=== PATIENT | male | born 1940 | race Caucasian/White ===

== ENCOUNTER → 2016-07-16 | Outpatient (CLI) | payer MEDICARE, OTHER | END | disposition home or self-care (01) | LOC: PCVCCLINIC 11:40 | PROVIDERS: ATTEND Internal Medicine Cardiovascular Disease | DX: I25.10 Atherosclerotic heart disease of native coronary artery without angina pectoris (principal); I10 Essential (primary) hypertension; E78.00 Pure hypercholesterolemia, unspecified; I05.9 Rheumatic mitral valve disease, unspecified; I48.91 Unspecified atrial fibrillation | CPT/HCPCS: 93005; G0463 ==

== ENCOUNTER → 2017-01-12 | Outpatient (CLI) | payer MEDICARE, OTHER ==
--- NOTE | 2017-01-12 14:42 | PCVCIMAG ---
EXAM: BILATERAL CAROTID DUPLEX INDICATION: Carotid Occlusive Disease. FINDINGS: Doppler Measurements (centimeters per second): RIGHT: Peak CCA-75, Peak ECA-113, Diastolic ICA-26, Peak ICA-77, ICA/CCA Ratio-1.0. LEFT: Peak CCA-92, Peak ECA-93, Diastolic ICA-19, Peak ICA-91, ICA/CCA Ratio-1.0. RIGHT CAROTID: The carotid bulb has minimal plaque. The proximal internal carotid artery shows no significant stenosis. The common carotid artery shows no significant stenosis. The external carotid artery shows no significant stenosis. LEFT CAROTID: The carotid bulb has minimal plaque. The proximal internal carotid artery shows no significant stenosis. The common carotid artery shows no significant stenosis. The external carotid artery shows no significant stenosis. Antegrade flow in both vertebral arteries. IMPRESSION: No significant stenosis of the right internal carotid artery with minimal plaque. No significant stenosis of the left internal carotid artery with minimal plaque. LOC:[id number]
--- NOTE | 2017-01-12 17:06 | PCVCIMAG ---
APPROVED REPORT Study performed: 01/12/2017 14:43:56 EXAM: Comprehensive 2D, Doppler, and color-flow Echocardiogram Patient Location: Echo lab Status: routine BSA: 2.14 HR: 88 bpmBP: 116/76 mmHg Rhythm: Atrial Fibrillation Other Information Study Quality: Adequate Indications Atrial Fibrillation S/P MV Repair Nausea 2D Dimensions LVEF(%): 50.00 (>50%) IVSd: 9.42 (7-11mm)LVOT Diam: 22.00 (18-24mm) LVDd: 37.68 mm PWd: 8.45 (7-11mm)Ascending Ao: 29.37 (22-36mm) LVDs: 30.60 (25-40mm) Left Atrium: 56.87 (27-40mm) Aortic Root: 35.86 mm LV Single Plane 4CH: 46.17 % LV Single Plane 2CH: 50.74 %Alcantar's LVEF: 48.46 % Biplane EF: 48.7 % Volumes Left Atrial Volume (Systole) Single Plane 4CH: 102.86 mLSingle Plane 2CH: 82.50 mL LA ESV Index: 46.00 mL/m2 Aortic Valve AoV Peak Jesus.: 1.45 m/s AO Peak Gr.: 8.49 mmHgLVOT Max P.62 mmHg LVOT Max V: 0.81 m/s LUZMA Vmax: 2.01 cm2 Mitral Valve MV Peak Gr.: 16.47 mmHg MV Mean Gr.: 6.77 mmHg MV Max Jesus.: 2.03 m/s MV Mean Jesus.: 1.16 m/s MV VTI: 441.43 mm Pulmonary Valve PV Peak Jesus.: 1.04 m/sPV Peak Gr.: 4.30 mmHg Tricuspid Valve TR Peak Jesus.: 2.47 m/sRAP Estimate: 7.00 mmHg TR Peak Gr.: 24.66 mmHg PA Pressure: 32.00 mmHg Left Ventricle The left ventricle is normal size. There is normal LV segmental wall motion. There is normal left ventricular wall thickness. Left ventricular systolic function is normal. The left ventricular ejection fraction is within the normal range. Left ventricular systolic function is mildly decreased. LVEF is 50%. This study is not technically sufficient to allow evaluation of the LV diastolic function due to atrial fibrillation. Right Ventricle The right ventricle is normal size. The right ventricular systolic function is normal. Atria Left atrium is moderately dilated. Right atrium is dilated. Aortic Valve The Aortic valve is sclerotic. No aortic regurgitation is present. There is no aortic valvular stenosis. Mitral Valve The mitral valve is normal in structure.w evidence of ring repair Annuloplasty ring is noted in the mitral position. Trace mitral regurgitation. No evidence of mitral valve stenosis. Tricuspid Valve The tricuspid valve is normal in structure. Mild tricuspid regurgitation. Pulmonary artery pressure is 32 mmHg. Pulmonic Valve The pulmonary valve is normal in structure. Trace pulmonic regurgitation. Great Vessels The aortic root is normal in size. IVC is normal in size and collapses with >50% inspiration Pericardium There is no pericardial effusion. <Conclusion> Left ventricular systolic function is normal. The left ventricular ejection fraction is within the normal range. Left ventricular systolic function is mildly decreased. LVEF is 50%. This study is not technically sufficient to allow evaluation of the LV diastolic function due to atrial fibrillation. The right ventricle is normal size. Left atrium is moderately dilated. Right atrium is dilated. The Aortic valve is sclerotic. There is no aortic valvular stenosis. Trace mitral regurgitation. The mitral valve is normal in structure.w evidence of ring repair Mild tricuspid regurgitation. Pulmonary artery pressure is 32 mmHg. There is no pericardial effusion.
== END | disposition home or self-care (01) ==
LOC: PCVCIMAG 14:03
PROVIDERS: ATTEND Internal Medicine Cardiovascular Disease
DX: I65.23 Occlusion and stenosis of bilateral carotid arteries (principal); I48.91 Unspecified atrial fibrillation; I08.1 Rheumatic disorders of both mitral and tricuspid valves; I25.10 Atherosclerotic heart disease of native coronary artery without angina pectoris; I10 Essential (primary) hypertension; E78.00 Pure hypercholesterolemia, unspecified; I87.2 Venous insufficiency (chronic) (peripheral); I49.3 Ventricular premature depolarization; M19.90 Unspecified osteoarthritis, unspecified site; Z90.79 Acquired absence of other genital organ(s); Z79.82 Long term (current) use of aspirin
CPT/HCPCS: 80061; 93005; 93306; 93880; G0463

== ENCOUNTER → 2017-01-12 | Outpatient (CLI) | payer MEDICARE, OTHER | END | disposition home or self-care (01) | LOC: PCVCCLINIC 16:07 | PROVIDERS: ATTEND Internal Medicine Cardiovascular Disease | DX: I25.10 Atherosclerotic heart disease of native coronary artery without angina pectoris (principal); I48.91 Unspecified atrial fibrillation; I10 Essential (primary) hypertension; E78.00 Pure hypercholesterolemia, unspecified; I87.2 Venous insufficiency (chronic) (peripheral); G45.9 Transient cerebral ischemic attack, unspecified; R94.31 Abnormal electrocardiogram [ECG] [EKG]; I49.3 Ventricular premature depolarization; R42 Dizziness and giddiness; R55 Syncope and collapse; Z79.82 Long term (current) use of aspirin; Z79.899 Other long term (current) drug therapy | CPT/HCPCS: 80061; 93005; G0463 ==

== ENCOUNTER → 2017-06-11 | Outpatient (CLI) | payer MEDICARE, OTHER | END | disposition home or self-care (01) | LOC: PCVCCLINIC 15:15 | DX: I48.2 Chronic atrial fibrillation (principal); I10 Essential (primary) hypertension; I25.10 Atherosclerotic heart disease of native coronary artery without angina pectoris; E78.5 Hyperlipidemia, unspecified; I87.2 Venous insufficiency (chronic) (peripheral); I05.9 Rheumatic mitral valve disease, unspecified; R94.31 Abnormal electrocardiogram [ECG] [EKG]; Z79.899 Other long term (current) drug therapy; Z79.82 Long term (current) use of aspirin | CPT/HCPCS: 80061; 93005; G0463 ==

== ENCOUNTER → 2017-12-17 | Outpatient (CLI) | payer MEDICARE, OTHER | END | disposition home or self-care (01) | LOC: PCVCCLINIC 14:09 | DX: I48.1 Persistent atrial fibrillation (principal); I25.10 Atherosclerotic heart disease of native coronary artery without angina pectoris; I10 Essential (primary) hypertension; I05.9 Rheumatic mitral valve disease, unspecified; I87.9 Disorder of vein, unspecified; G45.9 Transient cerebral ischemic attack, unspecified; K57.90 Diverticulosis of intestine, part unspecified, without perforation or abscess without bleeding; R94.31 Abnormal electrocardiogram [ECG] [EKG]; Z79.82 Long term (current) use of aspirin; Z79.899 Other long term (current) drug therapy | CPT/HCPCS: 93005; G0463 ==

== ENCOUNTER → 2018-01-11 | Outpatient (CLI) | payer MEDICARE, OTHER ==
[~2018-01-11] MED LIST: REGADENOSON 0.4 MG/5 ML DISP.SYRIN. IV ONE
--- NOTE | 2018-01-11 10:04 | PCVCIMAG ---
APPROVED REPORT Study performed: 01/11/2018 07:45:19 EXAM: Limited 2D, Doppler, and color-flow Echocardiogram Patient Location: Echo lab Status: routine BSA: 2.13 HR: 84 bpmBP: 126/72 mmHg Rhythm: Atrial Fibrillation Other Information Study Quality: Adequate Indications Atrial Fibrillation Cardiomyopathy mitral valve ring repair 2D Dimensions LVEF(%): 48.35 (>50%) IVSd: 10.70 (7-11mm) LVDd: 47.73 mm PWd: 8.87 (7-11mm)Ascending Ao: 33.24 (22-36mm) LVDs: 36.10 (25-40mm) Left Atrium: 54.24 (27-40mm) Aortic Root: 31.24 mm LV Single Plane 4CH: 45.40 % LV Single Plane 2CH: 36.43 %Alcantar's LVEF: 40.92 % Mitral Valve MV Peak Gr.: 16.21 mmHg MV Mean Gr.: 5.50 mmHg MV Max Jesus.: 2.01 m/s MV Mean Jesus.: 1.04 m/s MV VTI: 484.79 mm MV PHT: 88.03 ms MVA (PHT): 2.50 cm2 Tricuspid Valve TR Peak Jesus.: 3.03 m/s TR Peak Gr.: 36.98 mmHg Left Ventricle The left ventricle is normal size. There is normal LV segmental wall motion. There is normal left ventricular wall thickness. Left ventricular systolic function is moderately decreased. LVEF is 35-40%. This study is not technically sufficient to allow evaluation of the LV diastolic function due to atrial fibrillation. Right Ventricle The right ventricle is normal size. The right ventricular systolic function is normal. Atria Left atrium is severely dilated. The right atrium size is mildly dilated. Aortic Valve The aortic valve is normal in structure. No aortic regurgitation is present. There is no aortic valvular stenosis. Mitral Valve Mitral valve ring repair present and normally functioning. Mild mitral regurgitation. Mild mitral stenosis present with MVA of 2.5 cm2 and mean gradient of 5.5 mmHg and peak gradient of 16.2 mmHg. Tricuspid Valve The tricuspid valve is normal in structure. Mild to moderate tricuspid regurgitation with PAP of 44 mmHg. Pulmonic Valve The pulmonary valve is normal in structure. There is no pulmonic valvular regurgitation. Great Vessels The aortic root is normal in size. IVC is normal in size and collapses with >50% inspiration Pericardium There is no pericardial effusion. There is no pleural effusion. <Conclusion> The left ventricle is normal size. Left ventricular systolic function is moderately decreased. LVEF is 35-40%. This study is not technically sufficient to allow evaluation of the LV diastolic function due to atrial fibrillation. Left atrium is severely dilated. The right atrium size is mildly dilated. There is no aortic valvular stenosis. Mild mitral regurgitation. Mild to moderate tricuspid regurgitation with PAP of 44 mmHg. The aortic root is normal in size. There is no pericardial effusion. Mitral valve ring repair present and normally functioning. Mild mitral stenosis present with MVA of 2.5 cm2 and mean gradient of 5.5 mmHg and peak gradient of 16.2 mmHg.
--- NOTE | 2018-01-11 14:43 | PCVCIMAG ---
APPROVED REPORT Imaging Protocol: Rest Tc-99m/Stress Tc-99m 1 day Study performed: 01/11/2018 08:55:59 Indication: Atrial Fibrillation, CAD , Dyspnea on Exertion Patient Location: Out-Patient Stress Nurse: Daly Cunningham RN OR Tech:Kasia Chapin [facility] Ht: 5 ft 8 in Wt: 221 lbs BSA: 2.13 m2 HR: 91 bpm BP: 129/66 mmHg BMI: 33.5 Rhythm: Atrial Fibrillation, PVC's Medical History Medical History: HTN, Hyperlipidemia, CAD, CVD, Atrial Fibrillation Medications: ASA, Eliquis, Vascepa, Irbesartan, Metoprolol, Simvastatin Allergies: No known drug allergies Cardiac Risk Factors: Age Pretest Chest Pain Characteristics: No chest pain Exercise History: Sedentary Physical Disabilities: Legs Resting Data Rest SPECT myocardial perfusion imaging was performed in supine position 45 minutes following the intravenous injection of 10.8 mCi of Tc-99m Sestamibi. Time of rest injection: 0840 Date: 01/11/2018 Administration Route: IV Administration Site: Right AC Pharmacologic Stress Pharmacologic stress test was performed by injecting Regadenoson 0.4 mg IV push over 10-15 seconds immediately followed by the intravenous injection of 33.8 mCi of Tc-99m Sestamibi. Time of stress injection: 1000 Date: 01/11/2018 Administration Route: IV Administration Site: Right AC Gated Stress SPECT was performed 45 minutes after stress injection. The images were gated to evaluate regional wall motion and calculate left ventricular ejection fraction. Stress Test Details Stress Test: Pharmacologic stress testing performed using 0.4 mg of regadenoson per 5 mL given IV over 10 seconds. Reason for pharmacologic stress test: physical limitation, AFIB. HRMax Heart Rate (APMHR): 142 bpm Resting HR: 91 bpmTarget HR (85% APMHR): 120 bpm Max HR Achieved: 101 bpm % of APMHR: 71 Recovery HR: 86 bpm BP Resting BP: 129/66 mmHg Recovery BP: 112/60 mmHg ECG Resting ECG: Atrial Fibrillation Stress ECG: Atrial Fibrillation Arrhythmia: Frequent PVCs and Couplets Recovery ECG: Atrial Fibrillation Clinical Reason for Termination: Completed protocol Stress Symptoms: Dyspnea Exercise duration: 0 min 55 sec Symptoms resolved during recovery. Stress ECG Conclusion ECG: Non-ischemic Study Quality Study: Good Study Data Post stress, the left ventricular ejection was 55%.. SSS: 3 SRS: 2 SDS: 1 TID = 1.02. 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 Wall Motion Normal left ventricular size and function with no regional wall motion abnormalities. 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 Normal left ventricular size and function with no regional wall motion abnormalities. Post stress, the left ventricular ejection was 55%. No prior study available for comparison. Interpreted by: Kimani Paul MD Electronically Approved: 01/11/2018 12:14:21 <Conclusion> ECG: Non-ischemic
== END | disposition home or self-care (01) ==
LOC: PCVCIMAG 12:57
PROVIDERS: ATTEND Internal Medicine Cardiovascular Disease
DX: I08.1 Rheumatic disorders of both mitral and tricuspid valves (principal); I48.91 Unspecified atrial fibrillation; I25.10 Atherosclerotic heart disease of native coronary artery without angina pectoris; R06.09 Other forms of dyspnea; I63.9 Cerebral infarction, unspecified; I10 Essential (primary) hypertension; E78.5 Hyperlipidemia, unspecified
CPT/HCPCS: 78452; 93017; 93308; A9500; J2785

== ENCOUNTER → 2018-01-13 | Outpatient (CLI) | payer MEDICARE, OTHER | END | disposition home or self-care (01) | LOC: PCVCCLINIC 13:42 | PROVIDERS: ATTEND Internal Medicine Cardiovascular Disease | DX: I48.1 Persistent atrial fibrillation (principal); I42.9 Cardiomyopathy, unspecified; I10 Essential (primary) hypertension; I25.10 Atherosclerotic heart disease of native coronary artery without angina pectoris; R06.09 Other forms of dyspnea; E78.00 Pure hypercholesterolemia, unspecified; I87.309 Chronic venous hypertension (idiopathic) without complications of unspecified lower extremity; Z98.890 Other specified postprocedural states; Z79.82 Long term (current) use of aspirin; Z79.899 Other long term (current) drug therapy | CPT/HCPCS: 80061; G0463 ==

== ENCOUNTER → 2018-04-30 | Outpatient (CLI) | payer MEDICARE, OTHER | END | disposition home or self-care (01) | LOC: PCVCCLINIC 11:00 | PROVIDERS: ATTEND Nurse Practitioner Adult Health | DX: Z01.818 Encounter for other preprocedural examination (principal); I25.10 Atherosclerotic heart disease of native coronary artery without angina pectoris; I48.1 Persistent atrial fibrillation; I87.2 Venous insufficiency (chronic) (peripheral); I10 Essential (primary) hypertension; I42.9 Cardiomyopathy, unspecified; E78.00 Pure hypercholesterolemia, unspecified; Z98.890 Other specified postprocedural states; Z79.82 Long term (current) use of aspirin | CPT/HCPCS: 93005; G0463 ==

== ENCOUNTER → 2018-11-10 | Outpatient (CLI) | payer MEDICARE, OTHER ==
--- NOTE | 2018-11-10 15:22 | PCVCIMAG ---
APPROVED REPORT Study performed: 11/10/2018 13:37:58 EXAM: Comprehensive 2D, Doppler, and color-flow Echocardiogram Patient Location: Echo lab Status: routine BSA: 2.11 HR: 74 bpmBP: 114/74 mmHg Rhythm: Atrial Fibrillation Other Information Study Quality: Adequate Indications Atrial Fibrillation CAD Cardiomyopathy S/P MV ring repair (2006) 2D Dimensions IVSd: 10.70 (7-11mm)LVOT Diam: 21.00 (18-24mm) LVDd: 42.68 mm PWd: 10.70 (7-11mm)Ascending Ao: 31.18 (22-36mm) LVDs: 35.43 (25-40mm) Left Atrium: 53.89 (27-40mm) Aortic Root: 30.27 mm LV Single Plane 4CH: 45.53 % LV Single Plane 2CH: 51.96 % Biplane EF: 46.7 % Volumes Left Atrial Volume (Systole) Single Plane 4CH: 101.43 mLSingle Plane 2CH: 98.39 mL LA ESV Index: 50.00 mL/m2 Aortic Valve AoV Peak Jesus.: 1.47 m/s AO Peak Gr.: 8.82 mmHgLVOT Max P.99 mmHg LVOT Max V: 0.81 m/s LUZMA Vmax: 1.99 cm2 Mitral Valve MV Peak Gr.: 13.75 mmHg MV Mean Gr.: 5.19 mmHg MV Max Jesus.: 1.85 m/s MV Mean Jesus.: 1.00 m/s MV VTI: 540.90 mm MV PHT: 101.16 ms MVA (PHT): 2.17 cm2 Pulmonary Valve PV Peak Jesus.: 0.89 m/sPV Peak Gr.: 3.15 mmHg Tricuspid Valve TR Peak Jesus.: 2.75 m/sRAP Estimate: 7.00 mmHg TR Peak Gr.: 30.21 mmHg PA Pressure: 37.00 mmHg Left Ventricle The left ventricle is normal size. There is normal LV segmental wall motion. Borderline concentric left ventricular hypertrophy. Left ventricular systolic function is decreased. LVEF is 45-50%. This study is not technically sufficient to allow evaluation of the LV diastolic function due to atrial fibrillation. Right Ventricle The right ventricle is normal size. The right ventricular systolic function is normal. Atria Left atrium is severely dilated. Right atrium is dilated. Aortic Valve The aortic valve is normal in structure. Trace aortic regurgitation. There is no aortic valvular stenosis. Mitral Valve The mitral valve is normal in structure. Mitral valve ring repair present and is normally functioning. Mild mitral regurgitation. Mild mitral stenosis with MVA of 2.2 cm2. Peak mitral valve gradient is 14 mmHg and the mean gradient is 5 mmHg. Tricuspid Valve The tricuspid valve is normal in structure. Mild to moderate tricuspid regurgitation. Pulmonary artery pressure is 37 mmHg. Pulmonic Valve The pulmonary valve is normal in structure. Trace pulmonic regurgitation. Great Vessels The aortic root is normal in size. The ascending aorta is normal in size. IVC is normal in size and collapses >50% with inspiration. Pericardium There is no pericardial effusion. <Conclusion> The left ventricle is normal size. Borderline concentric left ventricular hypertrophy. Left ventricular systolic function is decreased. LVEF is 45-50%. This study is not technically sufficient to allow evaluation of the LV diastolic function due to atrial fibrillation. The right ventricle is normal size. Left atrium is severely dilated. Right atrium is dilated. Trace aortic regurgitation. Mild mitral regurgitation. The aortic root is normal in size. There is no pericardial effusion.
== END | disposition home or self-care (01) ==
LOC: PCVCIMAG 13:44
PROVIDERS: ATTEND Internal Medicine Cardiovascular Disease
DX: I34.0 Nonrheumatic mitral (valve) insufficiency (principal); I48.91 Unspecified atrial fibrillation; I25.10 Atherosclerotic heart disease of native coronary artery without angina pectoris; I42.9 Cardiomyopathy, unspecified
CPT/HCPCS: 36415; 80061; 93005; 93306; G0463

== ENCOUNTER → 2019-02-09 | Outpatient (CLI) | payer MEDICARE, OTHER ==
--- NOTE | 2019-02-09 17:39 | PCVCIMAG ---
EXAM: BILATERAL CAROTID DUPLEX INDICATION: Carotid Occlusive Disease. FINDINGS: Doppler Measurements (centimeters per second): RIGHT: Peak CCA-90, Peak ECA-76, Diastolic ICA-21, Peak ICA-78, ICA/CCA Ratio-0.9. LEFT: Peak CCA-91, Peak ECA-57, Diastolic ICA-17, Peak ICA-66, ICA/CCA Ratio-0.8. RIGHT CAROTID: The carotid bulb has minimal plaque. The proximal internal carotid artery shows no significant stenosis. The common carotid artery shows no significant stenosis. The external carotid artery shows no significant stenosis. LEFT CAROTID: The carotid bulb has minimal plaque. The proximal internal carotid artery shows no significant stenosis. The common carotid artery shows no significant stenosis. The external carotid artery shows no significant stenosis. Antegrade flow in both vertebral arteries. IMPRESSION: No significant stenosis of the right internal carotid artery with minimal plaque. No significant stenosis of the left internal carotid artery with minimal plaque. No change since December 2016. LOC:[id number]
== END | disposition home or self-care (01) ==
LOC: PCVCIMAG 11:42
PROVIDERS: ATTEND Internal Medicine Cardiovascular Disease
DX: I65.23 Occlusion and stenosis of bilateral carotid arteries (principal); I25.10 Atherosclerotic heart disease of native coronary artery without angina pectoris; I10 Essential (primary) hypertension; I42.9 Cardiomyopathy, unspecified; E78.00 Pure hypercholesterolemia, unspecified; Z87.19 Personal history of other diseases of the digestive system
CPT/HCPCS: 36415; 80061; 93005; 93880; G0463